=== PATIENT | female | born 1965 | race Two or more races ===

== ENCOUNTER 2017-02-24 06:40 | Day surgery (SDC) | payer BC ==
[2017-02-24] VITALS (9 sets, daily range): BP systolic 116–135; BP diastolic 63–86
[~2017-02-24] VITALS: Ht 124.5 cm; Wt 51.3 kg
--- NOTE | 2017-02-24 06:28 | Anethesia Preoperative Eval ---
Anesthesia Pre-op PMH/ROS General Date of Evaluation: Feb 24, 2017 Time of Evaluation: 06:26 Anesthesiologist: izzy ASA Score: ASA 3 Mallampati Score Class I : Soft palate, uvula, fauces, pillars visible Class II: Soft palate, uvula, fauces visible Class III: Soft palate, base of uvula visible Class IV: Only hard plate visible Mallampati Classification: Class II Surgeon: laura Diagnosis: abdominal pain, gerd Surgical Procedure: colonoscopy Anesthesia History: none Family History: no anesthesia problems Allergies: Coded Allergies: No Known Allergies (Unverified , 02/23/17) Medications: see eMAR Past Medical History Hematology/Immune: Reports: other - leukemia Anesthesia Pre-op Phys. Exam Physician Exam Constitutional: NAD Neurologic: CN 2-12 intact Cardiovascular: RRR Respiratory: CTA Gastrointestinal: S/NT/ND Airway Exam Mallampati Score: Class II MO: full Neck: supple TMD: 2fb ROM: full Teeth: intact Anesthesia Pre-op A/P Risk Assessment & Plan Assessment: asa3 Plan: mac Status Change Before Surgery: No Pre-Antibiotics Drug: DARRION Barillas Feb 24, 2017 06:28
[2017-02-24] MEDS ORDERED: Lidocaine 1% MPF 10mg/ml 5ml ONE (07:00)
[2017-02-24] MEDS ORDERED: LR 1000ml 1,000 ML IVLG SCH ×2 (07:00→08:07)
[2017-02-24] MEDS ORDERED: LR 1000ml ONE (07:00)
[2017-02-24] MEDS ORDERED: Propofol 200mg/20ml IV ONE (07:00)
[2017-02-24] MEDS ORDERED: ZYPREXA10 MG ORAL (07:18)
[2017-02-24] MEDS ORDERED: CITRACAL-VIT D1 EAC2 PO (07:19)
[2017-02-24] MEDS ORDERED: VITAMIN D1000 UNI1 ORAL (07:20)
--- NOTE | 2017-02-24 07:36 | Short Stay Surgery H&P ---
History of Present Illness History of Present Illness Chief Complaint Colonoscopy for Screening colon for CA/polyps HPI Amalia Umana is a 51 year old female who was admitted on for Screening colon Patient History Allergies: Coded Allergies: No Known Allergies (Unverified , 02/23/17) PAST MEDICAL HISTORY: Past Surgeries: Social History: Medication History Scheduled Xavier Cit/Mag/D3/Zn/Multiple Knife Edge Trimmer Operator/Richar/Bor (Citracal-Vit D + Magnesium Tab), 1 EACH PO DAILY , (Reported) Cholecalciferol (Vitamin D3)* (Vitamin D*), 1,000 UNIT ORAL DAILY, (Reported) Olanzapine* (Zyprexa*), 10 MG ORAL DAILY, (Reported) Review of Systems Cardiovascular: Reports: no symptoms Respiratory: Reports: no symptoms Skeletal: Reports: no symptoms Gastrointestinal: Reports: no symptoms Genitourinary: Reports: no symptoms Neurologic: Reports: no symptoms Endocrine: Reports: no symptoms Hematologic: Reports: no symptoms Physical Exam Vital Signs Last Vital Signs Date Time Temp Pulse Resp B/P (MAP) Pulse Ox O2 Delivery O2 Flow Rate FiO2 02/24/17 07:14 98.0 73 18 134/83 100 Room Air Skin: normal HENT: normal Heart: normal Lungs: normal Abdomen: normal Extremities: normal Genitourinary: normal Plan Plan of Care Total colonoscopy Preop Interventions None. Summary of Findings See the reports. Final Diagnosis: Attestation Are the patient's medical conditions optimized for surgery? Attestation Response: yes FREDERIC AMOS Feb 24, 2017 07:36
--- NOTE | 2017-02-24 07:37 | Pre-Procedure Note/Attestation ---
Pre-Procedure Note/Attestation Complete Prior to Procedure Planned Procedure: left Procedure Narrative: Examination of the colon through endoscopy. Indications for Procedure Pre-Operative Diagnosis: R/O colon polyps. Attestation I attest that I discussed the nature of the procedure; its benefits; risks and complications; and alternatives (and the risks and benefits of such alternatives ), prior to the procedure, with the patient (or the patient's legal inside technical sales representative). I attest that, if there was a reasonable possibility of needing a blood transfusion, the patient (or the patient's legal inside technical sales representative) was given the [facility] standardized written summary, pursuant to the [place] Blood Safety Act ([place] Health and Safety Code # 1645, as amended). I attest that I re-evaluated the patient just prior to the surgery and that there has been no change in the patient's H&P, except as documented below: DANDRE,SAID Feb 24, 2017 07:37
--- NOTE | 2017-02-24 07:53 | Endoscopy Procedure Note ---
Endoscopy Procedure Note Indication for Procedure: Screening colon Procedures Performed: colonoscopy - Minimal internal hemorrhoids. 2-3 mm hyperplastic polyp at 10 Cm from anal opening that was removed by cold biopsy forceps. Highly redundant left colon;otherwise normal total colonoscopy. Specimen: yes Pt Tolerated Procedure Well: Yes Estimated Blood Loss: none Anesthesiologist: Dr. Frias. Anesthesia: moderate sedation Medication Given: see anesthesia record Implant(s) used?: No 50 yrs or older w/o bx or poly: Yes 10yrs. F/U not recommended: Yes If not recommended, why?: 18 years or older w/prev. colo: No <3yrs. since last colonoscopy: Yes Med reason:<3 yrs.: System Reason:<3 yrs.: FREDERIC AMOS Feb 24, 2017 07:53
--- NOTE | 2017-02-24 07:54 | Discharge Instructions ---
Discharge Instructions Discharge Instructions Follow up with: Make appointment with docotor after two weeks. For Congestive Heart Failure Reminder Report to your physician any weight gain of 5 pounds or more in one week. FREDERIC AMOS Feb 24, 2017 07:54
--- NOTE | 2017-02-24 08:10 | Immediate Post-Op Evaluation ---
Immediate Post-Op Evalulation Immediate Post-Op Evalulation Procedure: colonoscopy Date of Evaluation: Feb 24, 2017 Time of Evaluation: 08:09 IV Fluids: lr 250ml Blood Products: none Estimated Blood Loss: negligible Blood Pressure Systolic: 126 Blood Pressure Diastolic: 63 Pulse Rate: 65 Respiratory Rate: 18 O2 Sat by Pulse Oximetry: 100 Temperature (Fahrenheit): 97.7 Pain Score (1-10): 0 Nausea: No Vomiting: No Complications none Patient Status: awake, reacts, patent Hydration Status: adequate Drug: DARRION Barillas Feb 24, 2017 08:10
[2017-02-24] MEDS ORDERED: fentaNYL 100 mcg/2 mL IV PRN (08:15)
[2017-02-24] MEDS ORDERED: DiphenhydrAMINE 50mg/ml Inj IVP PRN (08:15)
[2017-02-24] MEDS ORDERED: Atropine Inj 1mg/10ml Syr IV PRN (08:15)
[2017-02-24] MEDS ORDERED: Midazolam 2mg/2ml Inj IVP PRN (08:15)
--- NOTE | 2017-02-24 08:45 | 48 Hour Post Anesthesia Eval ---
Post Anesthesia Evaluation Procedure: colonoscopy Date of Evaluation: Feb 24, 2017 Time of Evaluation: 08:43 Blood Pressure Systolic: 117 0: 77 Pulse Rate: 73 Respiratory Rate: 18 Temperature (Fahrenheit): 97.7 O2 Sat by Pulse Oximetry: 100 Airway: patent Nausea: No Vomiting: No Pain Intensity: 0 Hydration Status: adequate Cardiopulmonary Status: stable Mental Status/LOC: patient returned to baseline Post-Anesthesia Complications: none Follow-up care needed: N/A DARRION SEGURA Feb 24, 2017 08:45
--- NOTE | 2017-02-24 21:45 | Operative Note - Dictated ---
DATE OF OPERATION: 02/24/2017 SURGEON: Alejandro Ruiz M.D. PROCEDURE: Total colonoscopy with polypectomy. PREOPERATIVE DIAGNOSIS: Screening colonoscopy. POSTOPERATIVE DIAGNOSES: 1. Minimal internal hemorrhoid. 2. A 2-3 mm hyperplastic polypoid lesion in the rectum, which was removed with cold biopsy forceps. 3. Highly redundant left colon, otherwise complete normal study up to the base of the cecum as examined. MEDICATION USED: Per anesthesiologist, Dr. Frias. INSTRUMENT: GIF Olympus video colonoscope. DESCRIPTION OF PROCEDURE: The patient after arriving in endoscopy unit, was told about risks and benefits of the procedure, which she accepted and signed informed consent. She was then put in the left lateral decubitus position. After adequate IV sedation, the scope was gently passed through the anal area which revealed minimal internal hemorrhoids of no great significance as a retroflexion maneuver was also applied in this area. At this point, the scope was passed into the rectum at the level of 10 cm. From anal opening, there was a very small hyperplastic-type polypoid lesion, which was very soft in nature, looking quite benign, and it was grabbed with cold biopsy forceps and totally removed and the site of the polypectomy was also clear, no bleeding noted. At this time, the scope was passed through very redundant left colon and gradually reached towards the splenic flexure. From there, it was guided into the transverse colon, hepatic flexure, and finally reached to the base of the cecum. All these areas remained to be normal, however and there was no any other abnormalities such as tumors, polyps, inflammatory process, ulceration, etc. The colon cleanup was adequate and at this time, within 7 minutes, the scope was gradually pulled out and re-evaluation of the colon did not reveal any other pathologies. The patient tolerated the procedure well and left endoscopy room in good condition. Alejandro Ruiz M.D. DR: DWAYNE JOB#: [id number] CC:
== END 2017-02-24 09:15 | disposition home or self-care (01) ==
LOC: GAS 06:40
DX: Z12.11 Encounter for screening for malignant neoplasm of colon (principal); K64.8 Other hemorrhoids; K63.5 Polyp of colon; Z85.6 Personal history of leukemia; K21.9 Gastro-esophageal reflux disease without esophagitis
CPT/HCPCS: 45380; J2704; J7120; 94003; 94150